=== PATIENT | male | born 1955 | race Two or more races ===

== ENCOUNTER 2021-01-11 12:24 | Inpatient (IN) | payer OTHER, MEDICAID ==
[~2021-01-11] VITALS: Ht 172.7 cm; Wt 71.7 kg
[~2021-01-11 12:24] MED LIST: ASPI81CH43 PO; CITA20TA3 PO; FAMO-12 PO; FURO40TA4 PO; GABA300C10 PO; METH-532 PO; METO-6 PO; MULT-228 PO; OMEGCAP2 PO; POTA1TAB61 PO; TRAM50TA2 PO
[2021-01-11 14:59] LABS: Basophils # (auto) 0 10 ^3/uL (0-0.2); Basophils % (auto) 0.3 % (0.0-2.0); Eosinophils # (auto) 0 10 ^3/uL (0-0.8); Hematocrit 45.8 % (41.0-53.0); Hemoglobin 15.5 g/dL (13.5-17.5); Lymphocytes # (auto) 0.6 10 ^3/uL (0.4-5.4); Lymphocytes % (auto) 5.7 % (10.0-50.0); Mean Corpuscular Hemoglobin 31.3 pg (28.0-32.0); Mean Corpuscular Hgb Conc. 33.9 g/dL (32.0-36.0); Mean Corpuscular Volume 92.5 fL (80.0-100.0); Monocytes # (auto) 0.4 10 ^3/uL (0-1.3); Monocytes % (auto) 3.7 % (0.0-12.0); Neutrophils % (auto) 90.3 % (37.0-80.0); Red Blood Cells 4.95 10^6/uL (4.5-5.90)
[2021-01-11 15:16] LABS: Albumin 3.1 g/dL (3.4-5.0); Anion Gap 7 (5-15); Carbon Dioxide 26 mmol/L (21-32); Chloride 102 mmol/L (98-107); Glucose 136 mg/dL (74-106); Potassium 3.4 mmol/L (3.5-5.1); Sodium 135 mmol/L (136-145)
[2021-01-11 15:25] LABS: Alanine Aminotransferase 32 U/L (16-61); Alkaline Phosphatase 97 U/L (45-117); Aspartate Aminotransferase 36 U/L (15-37); Bilirubin, Total 0.2 mg/dL (0.2-1.0); GFR African American 109 mL/min; GFR Non-African American 90 mL/min; Total Protein 7.7 g/dL (6.4-8.2)
[2021-01-11 15:48] LABS: BUN/Creatinine Ratio 14.4; Blood Urea Nitrogen 13 mg/dL (7-18)
[2021-01-11] MEDS ORDERED: NITROGLYCERIN 0.4 MG SL TAB SL PRN (16:30)
[2021-01-11] MEDS ORDERED: MORPHINE SULFATE INJECTION 2 MG/ML SYRG IV PRN (16:30)
[2021-01-11] MEDS ORDERED: POTASSIUM EFFERVESENT TAB 25 MEQ PO ONE (16:45)
[2021-01-11] MEDS: DexAMETHasone SOD PHOS 10MG/1ML VIAL INJ IV SCH (17:13)
[2021-01-11] MEDS: ALBUTEROL SULF HFA 90MCG INH 200DOSE IN SCH (18:20)
[2021-01-11] MEDS: FISH OIL 1,000 MG CAPSULE PO SCH (22:00)
[2021-01-11] MEDS ORDERED: DEXTROSE (50%) 50ML SYRG IV PRN (22:00)
[2021-01-11] MEDS: METHOCARBAMOL 500 MG TAB PO SCH (22:10)
[2021-01-11] MEDS: METOPROLOL SUCCINATE XL 50 MG TAB PO SCH (22:11)
[2021-01-11] MEDS: traMADol HCL 50 MG TAB PO SCH (22:11)
[2021-01-11] MEDS: ACCU-CHEK COMFORT CURVE STRIP VI SCH (22:11)
[2021-01-11] MEDS: InsuLIN REG 1unit/0.01ml Soln (100units/ml) SC SCH (22:12)
[2021-01-12] MEDS: ACCU-CHEK COMFORT CURVE STRIP VI SCH ×4 (06:16→21:51)
[2021-01-12] MEDS: METHOCARBAMOL 500 MG TAB PO SCH ×3 (06:19→21:39)
[2021-01-12] MEDS: InsuLIN REG 1unit/0.01ml Soln (100units/ml) SC SCH ×4 (06:31→21:27)
[2021-01-12] MEDS: ALBUTEROL SULF HFA 90MCG INH 200DOSE IN SCH ×3 (06:45→17:30)
[2021-01-12] MEDS ORDERED: cefTRIAXone 1GM/50ML D5W 50 ML IV SCH (09:00)
[2021-01-12] MEDS: ASCORBIC ACID 500 MG TAB PO SCH (09:45)
[2021-01-12] MEDS: FAMOTIDINE 20 MG TAB PO SCH (09:46)
[2021-01-12] MEDS: ASPirin 81 mg TAB PO SCH (09:46)
[2021-01-12] MEDS: CITALOPRAM HYDROBR 20 MG TAB PO SCH (09:47)
[2021-01-12] MEDS: METOPROLOL SUCCINATE XL 50 MG TAB PO SCH ×2 (09:49→21:38)
[2021-01-12] MEDS: ZINC SULFATE 220mg CAP or TAB PO SCH (09:50)
[2021-01-12] MEDS: CHOLECALCIFEROL (VITD3) 2,000 UNIT CAP/TAB PO SCH (09:50)
[2021-01-12] MEDS: ENOXAPARIN SOD 40 MG/0.4 ML SYRINGE SC SCH (09:51)
[2021-01-12] MEDS: DexAMETHasone SOD PHOS 10MG/1ML VIAL INJ IV SCH (09:53)
[2021-01-12] MEDS ORDERED: AZITHROMYCIN 500MG/ 250ML 250 ML IV SCH (10:00)
[2021-01-12] MEDS: FISH OIL 1,000 MG CAPSULE PO SCH ×2 (10:00→21:51)
[2021-01-12] MEDS: traMADol HCL 50 MG TAB PO SCH ×2 (10:23→21:39)
[2021-01-12] MEDS ORDERED: REMDESIVIR PER PHARMACY 0 ML IV SCH (13:00)
[2021-01-12] MEDS ORDERED: REMDESIVIR 200 MG in NS 210ml LOADING DOSE ADULT IV ONE (15:00)
[2021-01-12 20:00] VITALS: BP 134/72
[2021-01-12 22:48] VITALS: BP 129/75
[2021-01-13 05:08] VITALS: BP 131/75
[2021-01-13] MEDS: ACCU-CHEK COMFORT CURVE STRIP VI SCH ×4 (06:32→22:20)
[2021-01-13] MEDS: InsuLIN REG 1unit/0.01ml Soln (100units/ml) SC SCH ×4 (06:32→22:00)
[2021-01-13] MEDS: ALBUTEROL SULF HFA 90MCG INH 200DOSE IN SCH ×3 (06:41→20:58)
[2021-01-13] MEDS: METHOCARBAMOL 500 MG TAB PO SCH ×3 (06:47→22:18)
[2021-01-13 07:04] LABS: Basophils # (auto) 0 10 ^3/uL (0-0.2); Basophils % (auto) 0.1 % (0.0-2.0); Eosinophils # (auto) 0 10 ^3/uL (0-0.8); Hematocrit 42.8 % (41.0-53.0); Hemoglobin 14.3 g/dL (13.5-17.5); Lymphocytes % (auto) 7.4 % (10.0-50.0); Mean Corpuscular Hemoglobin 30.6 pg (28.0-32.0); Mean Corpuscular Hgb Conc. 33.4 g/dL (32.0-36.0); Mean Corpuscular Volume 91.7 fL (80.0-100.0); Monocytes # (auto) 0.9 10 ^3/uL (0-1.3); Monocytes % (auto) 6.8 % (0.0-12.0); Neutrophils # (auto) 11.7 10 ^3/uL (1.6-8.6); Neutrophils % (auto) 85.7 % (37.0-80.0); Nucleated Red Blood Cells % 0.1 %; Red Blood Cells 4.67 10^6/uL (4.5-5.90); Red Cell Distribution Width 12.6 % (11.8-14.3); White Blood Cell 13.7 10^3/uL (4.4-10.8)
[2021-01-13 07:30] LABS: Potassium 4.3 mmol/L (3.5-5.1)
[2021-01-13 07:37] LABS: Albumin 2.9 g/dL (3.4-5.0); BUN/Creatinine Ratio 29.7; Calcium 9.6 mg/dL (8.5-10.1); Magnesium 2.3 mg/dL (1.6-2.6)
[2021-01-13 07:39] LABS: Bilirubin, Total 0.3 mg/dL (0.2-1.0); Total Protein 7.7 g/dL (6.4-8.2)
[2021-01-13 08:00] VITALS: BP 129/73
[2021-01-13 09:00] VITALS: BP 129/73
[2021-01-13] MEDS: FISH OIL 1,000 MG CAPSULE PO SCH ×2 (10:00→22:00)
[2021-01-13] MEDS: ASPirin 81 mg TAB PO SCH (10:12)
[2021-01-13] MEDS: DexAMETHasone SOD PHOS 10MG/1ML VIAL INJ IV SCH (10:12)
[2021-01-13] MEDS: FAMOTIDINE 20 MG TAB PO SCH (10:13)
[2021-01-13] MEDS: CITALOPRAM HYDROBR 20 MG TAB PO SCH (10:13)
[2021-01-13] MEDS: ZINC SULFATE 220mg CAP or TAB PO SCH (10:13)
[2021-01-13] MEDS: CHOLECALCIFEROL (VITD3) 2,000 UNIT CAP/TAB PO SCH (10:20)
[2021-01-13] MEDS: traMADol HCL 50 MG TAB PO SCH ×2 (10:20→22:19)
[2021-01-13] MEDS: METOPROLOL SUCCINATE XL 50 MG TAB PO SCH ×2 (10:20→22:21)
[2021-01-13] MEDS: ASCORBIC ACID 500 MG TAB PO SCH (10:20)
[2021-01-13] MEDS: ENOXAPARIN SOD 40 MG/0.4 ML SYRINGE SC SCH (10:21)
[2021-01-13 13:00] VITALS: BP 135/83
[2021-01-13] MEDS: REMDESIVIR 100mg 100 MG in SODIUM CHL 0.9% 230 ML IV SCH (15:14)
[2021-01-13 17:00] VITALS: BP 122/85
[2021-01-13 19:24] VITALS: BP 122/85
[2021-01-14 06:00] VITALS: BP 131/88
[2021-01-14] MEDS: InsuLIN REG 1unit/0.01ml Soln (100units/ml) SC SCH ×4 (06:37→21:57)
[2021-01-14] MEDS: ACCU-CHEK COMFORT CURVE STRIP VI SCH ×4 (06:38→22:07)
[2021-01-14] MEDS: METHOCARBAMOL 500 MG TAB PO SCH ×3 (06:39→22:07)
[2021-01-14 07:56] LABS: Alanine Aminotransferase 47 U/L (16-61); Albumin 2.5 g/dL (3.4-5.0); Anion Gap 7 (5-15); Aspartate Aminotransferase 35 U/L (15-37); BUN/Creatinine Ratio 24.6; Blood Urea Nitrogen 15 mg/dL (7-18); Calcium 8.9 mg/dL (8.5-10.1); Carbon Dioxide 25 mmol/L (21-32); Chloride 100 mmol/L (98-107); GFR African American 171 mL/min; GFR Non-African American 141 mL/min; Glucose 83 mg/dL (74-106); Potassium 4.4 mmol/L (3.5-5.1); Sodium 132 mmol/L (136-145)
[2021-01-14 07:58] LABS: Alkaline Phosphatase 90 U/L (45-117); Bilirubin, Total 0.2 mg/dL (0.2-1.0); Total Protein 6.9 g/dL (6.4-8.2)
[2021-01-14 08:00] VITALS: BP 128/73
[2021-01-14] MEDS: ALBUTEROL SULF HFA 90MCG INH 200DOSE IN SCH ×3 (08:09→19:41)
[2021-01-14 09:00] VITALS: BP 128/73
[2021-01-14] MEDS: FISH OIL 1,000 MG CAPSULE PO SCH ×2 (10:00→21:12)
[2021-01-14] MEDS: ASPirin 81 mg TAB PO SCH (10:25)
[2021-01-14] MEDS: DexAMETHasone SOD PHOS 10MG/1ML VIAL INJ IV SCH (10:25)
[2021-01-14] MEDS: CITALOPRAM HYDROBR 20 MG TAB PO SCH (10:26)
[2021-01-14] MEDS: METOPROLOL SUCCINATE XL 50 MG TAB PO SCH ×2 (10:26→22:07)
[2021-01-14] MEDS: ZINC SULFATE 220mg CAP or TAB PO SCH (10:26)
[2021-01-14] MEDS: FAMOTIDINE 20 MG TAB PO SCH (10:26)
[2021-01-14] MEDS: traMADol HCL 50 MG TAB PO SCH ×2 (10:27→22:06)
[2021-01-14] MEDS: ENOXAPARIN SOD 40 MG/0.4 ML SYRINGE SC SCH (10:27)
[2021-01-14] MEDS: ASCORBIC ACID 500 MG TAB PO SCH (10:27)
[2021-01-14] MEDS: CHOLECALCIFEROL (VITD3) 2,000 UNIT CAP/TAB PO SCH (10:27)
[2021-01-14 13:00] VITALS: BP 147/75
[2021-01-14] MEDS: REMDESIVIR 100mg 100 MG in SODIUM CHL 0.9% 230 ML IV SCH (15:05)
[2021-01-14 17:00] VITALS: BP 130/80
[2021-01-14 22:08] VITALS: BP 113/71
[2021-01-15 05:38] LABS: Basophils # (auto) 0 10 ^3/uL (0-0.2); Basophils % (auto) 0.2 % (0.0-2.0); Eosinophils # (auto) 0 10 ^3/uL (0-0.8); Eosinophils % (auto) 0.1 % (0.0-7.0); Hematocrit 40.3 % (41.0-53.0); Hemoglobin 13.6 g/dL (13.5-17.5); Lymphocytes # (auto) 1.1 10 ^3/uL (0.4-5.4); Lymphocytes % (auto) 8.4 % (10.0-50.0); Mean Corpuscular Hemoglobin 30.9 pg (28.0-32.0); Mean Corpuscular Hgb Conc. 33.8 g/dL (32.0-36.0); Mean Corpuscular Volume 91.5 fL (80.0-100.0); Monocytes # (auto) 0.8 10 ^3/uL (0-1.3); Monocytes % (auto) 6.5 % (0.0-12.0); Neutrophils # (auto) 10.9 10 ^3/uL (1.6-8.6); Neutrophils % (auto) 84.8 % (37.0-80.0); Red Cell Distribution Width 12.7 % (11.8-14.3); White Blood Cell 12.9 10^3/uL (4.4-10.8)
[2021-01-15 05:54] LABS: Potassium 4.3 mmol/L (3.5-5.1)
[2021-01-15 05:58] VITALS: BP 121/82
[2021-01-15 06:14] LABS: Albumin 2.5 g/dL (3.4-5.0); BUN/Creatinine Ratio 21.1; Bilirubin, Total 0.3 mg/dL (0.2-1.0); Calcium 8.9 mg/dL (8.5-10.1); Magnesium 2.3 mg/dL (1.6-2.6); Total Protein 6.5 g/dL (6.4-8.2)
[2021-01-15] MEDS: METHOCARBAMOL 500 MG TAB PO SCH ×2 (06:29→14:44)
[2021-01-15] MEDS: ACCU-CHEK COMFORT CURVE STRIP VI SCH ×3 (06:30→17:00)
[2021-01-15] MEDS: InsuLIN REG 1unit/0.01ml Soln (100units/ml) SC SCH ×3 (06:30→17:00)
[2021-01-15] MEDS: ALBUTEROL SULF HFA 90MCG INH 200DOSE IN SCH ×2 (07:04→13:50)
[2021-01-15 09:00] VITALS: BP 127/75
[2021-01-15] MEDS: ASCORBIC ACID 500 MG TAB PO SCH (09:02)
[2021-01-15] MEDS: ASPirin 81 mg TAB PO SCH (09:02)
[2021-01-15] MEDS: DexAMETHasone SOD PHOS 10MG/1ML VIAL INJ IV SCH (09:02)
[2021-01-15] MEDS: ENOXAPARIN SOD 40 MG/0.4 ML SYRINGE SC SCH (09:03)
[2021-01-15] MEDS: CITALOPRAM HYDROBR 20 MG TAB PO SCH (09:03)
[2021-01-15] MEDS: FAMOTIDINE 20 MG TAB PO SCH (09:03)
[2021-01-15] MEDS: ZINC SULFATE 220mg CAP or TAB PO SCH (09:04)
[2021-01-15] MEDS: METOPROLOL SUCCINATE XL 50 MG TAB PO SCH (10:00)
[2021-01-15] MEDS: FISH OIL 1,000 MG CAPSULE PO SCH (10:00)
[2021-01-15] MEDS: traMADol HCL 50 MG TAB PO SCH (10:02)
[2021-01-15] MEDS: CHOLECALCIFEROL (VITD3) 2,000 UNIT CAP/TAB PO SCH (10:02)
[2021-01-15 13:00] VITALS: BP 122/76
[2021-01-15] MEDS: REMDESIVIR 100mg 100 MG in SODIUM CHL 0.9% 230 ML IV SCH (15:10)
== END 2021-01-15 17:05 | disposition home health service (06) | DRG 177 ==
LOC: ER 12:24 → EDBD 12:24 → TELE 16:25 → TELE-EAST 01-12 18:14
PROVIDERS: ADMIT Internal Medicine; ATTEND Internal Medicine
PROC: XW033E5 Introduction of Remdesivir Anti-infective into Peripheral Vein, Percutaneous Approach, New Technology Group 5 (ICD-10-PCS; principal; 2021-01-12)
DX: U07.1 COVID-19 (principal); J96.01 Acute respiratory failure with hypoxia; J12.82 Pneumonia due to coronavirus disease 2019; J98.11 Atelectasis; F32.9 Major depressive disorder, single episode, unspecified; F41.9 Anxiety disorder, unspecified; J45.909 Unspecified asthma, uncomplicated; I10 Essential (primary) hypertension; E11.9 Type 2 diabetes mellitus without complications; E78.5 Hyperlipidemia, unspecified; Z79.82 Long term (current) use of aspirin; Z79.899 Other long term (current) drug therapy; Z83.3 Family history of diabetes mellitus; Z88.8 Allergy status to other drugs, medicaments and biological substances
CPT/HCPCS: 36415; 71045; 80053; 82728; 82962; 83735; 83880; 84484; 85025; 85379; 86141; 87081; 87426; 93005; 94640; 96374; 99291; G0378; J0696; J1100; J1815

== ENCOUNTER 2024-12-02 19:31 | Inpatient (IN) | payer BC, MEDICAID, OTHER ==
[~2024-12-02] VITALS: Ht 175.3 cm; Wt 70.2 kg
[~2024-12-02 19:31] MED LIST changes: +GABA-1250 PO; -GABA300C10 PO; +POTA-215 PO; -POTA1TAB61 PO
[2024-12-02] MEDS: MORPHINE SULFATE 4 MG/ML SYR/VIAL IV ONE (19:45)
[2024-12-02] MEDS: ONDANSETRON HCL 4 MG/2 ML VIAL IV ONE (19:45)
[2024-12-02] MEDS: SODIUM CHLORIDE 0.9% 1,000 ML IV ONE (19:45)
--- NOTE | 2024-12-02 19:54 | ED.PDOC ---
HPI (NEURO) HPI Comments 69y M who presents to the ED via EMS for chief complaint of headache. Per EMS, pt lives with spouse and called after pt has been having frequent falls over the past few days since pt had fall 3 days ago. Pt states 3 days ago, pt had slip and fall onto back of head and states ever since, he has been unsteady on his feet with associated occipital headache. EMS states pt was alert and oriented upon arrival and notes pt was able to ambulate to [place]. Pt has continued to have symptoms since and upon arrival to the ED, pt states he has also been having nausea, vomiting, diarrhea, upper abdominal pain, and chest pain. Pt states he has been having "frequent falls for the past 1 year and chest pain for the past 10 years." Pt denies any current use of blood thinner at this time. Time Seen by MD: 19:51 Primary Care Provider: KASANDRA Gerard Notes: Medications, Allergies Information Source: Patient, Emergency Med Personnel Mode of Arrival: EMS Past Medical History PAST MEDICAL HISTORY: Arthritis, Depression, DM, High Lipids, HTN Surgical History: Tonsillectomy Family History Family History: Unobtainable Social History Smoker: Non-Smoker Alcohol: Occasionally Drugs: Denies Drug Use Lives In: Home Constitutional: denies: chills, diaphoresis, fatigue, fever, malaise, sweats, weakness, others EENTM: denies: blurred vision, double vision, ear bleeding, ear discharge, ear drainage, ear pain, ear ringing, eye pain, eye redness, hearing loss, mouth pain, mouth swelling, nasal discharge, nose bleeding, nose congestion, nose pain, photophobia, tearing, throat pain, throat swelling, voice changes, others Respiratory: denies: cough, hemoptysis, orthopnea, SOB at rest, shortness of breath, SOB with excertion, stridor, wheezing, others Cardiovascular: reports: chest pain; denies: dizzy spells, diaphoresis, Dyspnea on exertion, edema, irregular heart beat, left arm pain, lightheadedness, palpitations, PND, syncope, others Gastrointestinal: reports: abdominal pain, nausea, vomiting; denies: abdomen distended, blood streaked bowels, constipated, diarrhea, dysphagia, difficulty swallowing, hematemesis, melena, poor appetite, poor fluid intake, rectal bleeding, rectal pain, others Genitourinary: denies: burning, dysuria, flank pain, frequency, hematuria, incontinence, penile discharge, penile sore, pain, testicle pain, testicle swelling, urgency, others Neurological: reports: headache Musculoskeletal: denies: back pain, gout, joint pain, joint swelling, muscle pain, muscle stiffness, neck pain, others Integumetry: denies: bruises, change in color, change in hair/nails, dryness, laceration, lesions, lumps, rash, wounds, others Allergic/Immunocompromised: denies: Difficulty Healing, Frequent Infections, Hives, Itching, others Hematologic/Lymphatic: denies: anemia, blood clots, easy bleeding, easy bruising, swollen glands, others Endocrine: denies: excessive hunger, excessive sweating, excessive thirst, excessive urination, flushing, intolerance to cold, intolerance to heat, unexplained weight gain, unexplained weight loss, others Psychiatric: denies: anxiety, bipolar disorder, depression, hopeless, panic disorder, schizophrenia, sleepless, suicidal, others All Other Systems: Reviewed and Negative Physical Exam General Appearance: No Apparent Distress HEENT: Other (Pupils and face symmetric. Moist mucous membranes. Occipital soft tissue tenderness to palpation. No edema, crepitus, bruising or step-off.) Neck: Full Range of Motion, Non-Tender, Normal Inspection, Supple Respiratory: Lungs Clear, No Accessory Muscle Use, No Respiratory Distress, Normal Breath Sounds Cardiovascular: No Edema, No JVD, Regular Rate/Rhythm Breast Exam: Deferred Gastrointestinal: Epigastric, LUQ, Soft, Tenderness Genitalia: Deferred Pelvic: Deferred Rectal: Deferred Extremities: Normal inspection, Normal range of motion, Non-tender, No pedal edema Neurologic: Alert (Oriented x4), Normal Affect, Normal Mood, Other (Ambulatory) Cerebellar Function: NOT DONE Reflexes: NOT DONE Skin: Dry, Normal Color, Warm Lymphatic: NOT DONE EKG EKG : Comments Sinus rhythm, rate 62, prolonged VT and QRS intervals, QTC 451, left axis deviation, right bundle-branch block and left anterior fascicular block, left ve ntricular hypertrophy, nonspecific T change. Was a procedure done? Was a procedure done?: No Differential Diagnosis (SZ) Seizure: CVA/TIA CVA: Drug Overdose, Electrolyte Imbalance, Encephalopathy, Hypoglycemia, SAH General Weakness: Anemia, Dehydration, Hypoglycemia, Vertigo: central, Vertigo: peripheral Headache: Migraine, Closed Head Injury, Epidural Hemorrhage, Intracerebral Hemorrhage, Subdural Hemorrhage, Other (Concussion, skull fracture, enteritis, gastritis, pancreatitis, colitis, UTI, among others) X-Ray, Labs, Meds, VS Vital Signs Date Time Temp Pulse Resp B/P (MAP) Pulse Ox O2 Delivery O2 Flow Rate FiO2 12/02/24 19:54 98.0 67 16 134/84 97 98.0 12/02/24 19:33 62 Lab Test 12/02/24 21:00 12/02/24 20:11 Range/Units Troponin I High Sensitivity Pending 52 </=54 ng/L White Blood Count 8.1 4.4-10.8 10^3/uL Red Blood Count 4.31 L 4.5-5.90 10^6/uL Hemoglobin 14.1 13.5-17.5 g/dL Hematocrit 40.6 L 41.0-53.0 % Mean Corpuscular Volume 94.4 80.0-100.0 fL Mean Corpuscular Hemoglobin 32.8 H 28.0-32.0 pg Mean Corpuscular Hemoglobin Concent 34.8 32.0-36.0 g/dL Red Cell Distribution Width 12.4 11.8-14.3 % Platelet Count 301 140-450 10^3/uL Mean Platelet Volume 5.8 L 6.9-10.8 fL Neutrophils (%) (Auto) 64.7 37.0-80.0 % Lymphocytes (%) (Auto) 22.9 10.0-50.0 % Monocytes (%) (Auto) 10.0 0.0-12.0 % Eosinophils (%) (Auto) 2.0 0.0-7.0 % Basophils (%) (Auto) 0.4 0.0-2.0 % Neutrophils # (Auto) 5.2 1.6-8.6 10 ^3/uL Lymphocytes # (Auto) 1.9 0.4-5.4 10 ^3/uL Monocytes # (Auto) 0.8 0-1.3 10 ^3/uL Eosinophils # (Auto) 0.2 0-0.8 10 ^3/uL Basophils # (Auto) 0 0-0.2 10 ^3/uL Nucleated Red Blood Cells 0.1 % Sodium Level 133 L 136-145 mmol/L Potassium Level 3.8 3.5-5.1 mmol/L Chloride Level 99 98-107 mmol/L Carbon Dioxide Level 25 20-31 mmol/L Anion Gap 9 5-15 Blood Urea Nitrogen 6 L 9-23 mg/dL Creatinine 0.88 0.700-1.30 mg/dL Glomerular Filtration Rate Calc 93 >90 mL/min BUN/Creatinine Ratio 6.8 L 10.0-20.0 Serum Glucose 104 74-106 mg/dL Calcium Level 9.6 8.7-10.4 mg/dL Total Bilirubin 0.6 0.2-1.0 mg/dL Aspartate Amino Transferase (AST) 46 H 13-40 U/L Alanine Aminotransferase (ALT) 46 H 7-40 U/L Alkaline Phosphatase 94 46-116 U/L Ammonia Pending Total Protein 7.2 5.7-8.2 g/dL Albumin 4.8 3.2-4.8 g/dL Lipase 114 H 12-53 U/L Plasma/Serum Blood Alcohol 275.5 H <10 mg/dL [place] [address] Ph: [phone] DIAGNOSTIC IMAGING Diagnostic Imaging Report : [id number] Signed PATIENT: MONIKA MAX ACCT: [id number] UNIT: [id number] : 1955 LOC: ER ROOM / BED: / AGE / SEX: 69 / M ADM STATUS: REG ER SERVICE 38 ORDERING PHYSICIAN: SHOAIB CHINCHILLA MD PROCEDURE(s): HWOCT - HEAD WITHOUT CONTRAST REASON: head injury ORDER NUMBER(s): [id number], ACCESSION NUMBER(s): [id number] EXAM: CT HEAD WITHOUT CONTRAST INDICATION: head injury TECHNIQUE: CT of the head without intravenous contrast. Radiation Dose Information: CT Dose: CTDI volume is 54.73 mGy. Dose-length product is 969.24 mGy*cm The dose indicators for CT are the volume Computed Tomography (CT) Dose Index (C TDIvol) and the Dose Length Product (DLP), and are measured in units of mGy and mGy-cm, respectively. These indicators are not patient dose, but values generated from the CT scanner acquisition factors. The report includes radiation exposure data for exposures received during this examination. COMPARISON: None FINDINGS: There is no evidence of acute intracranial hemorrhage, extra-axial collection, mass effect, midline shift, herniation or hydrocephalus. The ventricles, sulci and cisterns are age appropriate. The lyons-white differentiation is intact. Patchy periventricular and subcortical white matter hypoattenuation is non specific but may be related to small vessel ischemic disease. The visualized paranasal sinuses and mastoid air cells are clear. The surrounding soft tissues and osseous structures are unremarkable. IMPRESSION: 1. No acute intracranial abnormality. ATED BY: ROMEO SÁNCHEZ Jr., DO DICTATED DATE/TIME: 12/02/242043 SIGNED BY: ROMEO SÁNCHEZ Jr., DO SIGNED DATE/TIME: 12/02/242043 CC: [place] [id number] Ph: [phone] DIAGNOSTIC IMAGING Diagnostic Imaging Report : [id number] Signed PATIENT: MONIKA MAX ACCT: [id number] UNIT: [id number] : 1955 LOC: ER ROOM / BED: / AGE / SEX: 69 / M ADM STATUS: REG ER SERVICE 38 ORDERING PHYSICIAN: SHOAIB CHINCHILLA MD PROCEDURE(s): CXRP - CHEST PORTABLE REASON: cp ORDER NUMBER(s): [id number], ACCESSION NUMBER(s): [id number] CHEST RADIOGRAPH Indication: cp Technique: Single frontal view of the chest was obtained Comparison: CXR1 on DOS: 01/15/21, CHEST XRAY 1 VIEW on DOS: 01/15/21, CHEST PORTABLE on DOS: 01/11/21 FINDINGS: Lines and Tubes: None Lungs: No focal consolidation. Pleura: No effusion. No pneumothorax. Cardiomediastinal contours: Unremarkable Bones: No acute osseous abnormality. IMPRESSION: 1. No acute cardiopulmonary disease. ATED BY: ROMEO SÁNCHEZ Jr., DO DICTATED DATE/TIME: 12/02/242044 SIGNED BY: ROMEO SÁNCHEZ Jr., DO SIGNED DATE/TIME: 12/02/242044 CC: [facility] [id number] [place] [address] Ph: [phone] DIAGNOSTIC IMAGING Diagnostic Imaging Report : [id number] Signed PATIENT: MONIKA MAX ACCT: [id number] UNIT: [id number] : 1955 LOC: ER ROOM / BED: / AGE / SEX: 69 / M ADM STATUS: REG ER SERVICE 38 ORDERING PHYSICIAN: SHOAIB CHINCHILLA MD PROCEDURE(s): ABPL - CT AB PEL WO CON-NO ORAL OR IV REASON: upper abd pain, n/v/d ORDER NUMBER(s): [id number], ACCESSION NUMBER(s): [id number] Exam: CT CT AB PEL WO CON-NO ORAL OR IV History: upper abd pain, n/v/d Comparison Study: None TECHNIQUE: Multidetector CT of the abdomen and pelvis was performed from lung bases to pubic symphysis. Imaging was performed without IV contrast. Axial, coronal, and sagittal multiplanar reformats were obtained from the axial data set by the technologist. RADIATION DOSE: DLP 587.14 mGy.cm; CTDI vol 10.22 mGy. Findings: Lungs: The lung bases are clear. Heart: No cardiomegaly or pericardial effusion. Liver: Unremarkable. Gallbladder: Unremarkable. Spleen: Unremarkable Pancreas: Unremarkable Adrenals: Unremarkable Kidneys: Right renal cyst. GI tract: Unremarkable : Unremarkable. Vasculature: Moderate aortoiliac atherosclerosis. Lymphadenopathy: Absent Peritoneum: No ascites Musculoskeletal: Moderate multilevel degenerative changes of the thoracolumbar spine. Grade 1 anterolisthesis of L5 on S1. L5 pars defects. Soft tissues: Small fat containing periumbilical hernia. Unremarkable Impression: 1. No acute abdominopelvic abnormalities. ATED BY: DAIJA MONZON DO DICTATED DATE/TIME: 12/02/242100 SIGNED BY: DAIJA MONZON DO SIGNED DATE/TIME: 12/02/242100 CC: X-Ray, Labs, Meds, VS Comment 69-year-old male with a history of hypertension, diabetes, dyslipidemia and arthritis brought in by EMS for evaluation of recent frequent falls, complaining of an occipital headache after a fall 3 days ago with a head injury, associated with upper abdominal pain, nausea, vomiting and diarrhea Vitals remarkable for heart rate 62 Exam remarkable for epigastric and left upper quadrant tenderness to palpation, occipital scalp tenderness to palpation Rhythm strip independently interpreted by me: Sinus rhythm, rate 62, no ectopy. CT head, chest x-ray and CT abdomen and pelvis unremarkable for any abnormality of acute significance CBC unremarkable, CMP remarkable for sodium 133, AST 46, ALT 46, troponin negative, lipase elevated at 114 , alcohol 275.5, ammonia pending The following was ordered for the patient in the ED: 1 L 0.9 normal saline IV bolus, morphine 4 mg IV, Zofran 4 mg IV, Protonix 40 mg IV On re-evaluation at 9:27 p.m., patient is alert, oriented, states symptoms have improved. Vitals are stable. Plan is to admit the patient for pain and emesis control, GI and possibly neurology evaluation. Case discussed with TERRENCE Maxwell, who will evaluate the patient in the ED. Time of 1ST Reevaluation: 21:27 Reevaluation 1ST: Improved Patient Education/Counseling: Diagnosis, Treatment Family Education/Counseling: Diagnosis, Treatment Departure 1 Departure Time of Disposition: 21:27 Impression: Primary Impression: Frequent falls Additional Impressions: Head injury Qualified Codes: S09.90XA - Unspecified injury of head, initial encounter Pancreatitis Qualified Codes: K85.90 - Acute pancreatitis without necrosis or infection, unspecified Hyponatremia Chest pain with high risk for cardiac etiology Alcohol intoxication Qualified Codes: F10.929 - Alcohol use, unspecified with intoxication, unspecified Disposition: 30 STILL A PATIENT Condition: Guarded Critical Care Note Critical Care Time?: No Stability Stability form required: No Heart Score Heart Score: Heart Score Response (Comments) Value History Moderate Suspicious 1 EKG Repolarization Disturb 1 Age >65 2 Risk Factors >3 or Hx ASHD 2 Troponin Normal limit 0 Total 6 I personally scribed for SHOAIB CHINCHILLA MD ([facility]) on 12/02/24 at 19:54. Electronically submitted by Kate Boogie ([facility]). I personally scribed for SHOAIB CHINCHILLA MD ([facility]) on 8/7/25 at 21:08. Electronically submitted by Kate Boogie ([facility]). I personally scribed for SHOAIB CHINCHILLA MD ([facility]) on 12/02/24 at 21:13. Electronically submitted by Kate Boogie ([facility]). SHOAIB CHINCHILLA MD Dec 02, 2024 19:54
[2024-12-02 20:40] LABS: Hematocrit 40.6 % (41.0-53.0); Hemoglobin 14.1 g/dL (13.5-17.5); Mean Corpuscular Hemoglobin 32.8 pg (28.0-32.0); Mean Corpuscular Volume 94.4 fL (80.0-100.0); Nucleated Red Blood Cells % 0.1 %
--- NOTE | 2024-12-02 20:47 | DVH ---
CHEST RADIOGRAPH Indication: cp Technique: Single frontal view of the chest was obtained Comparison: CXR1 on DOS: 01/15/21, CHEST XRAY 1 VIEW on DOS: 01/15/21, CHEST PORTABLE on DOS: 01/11/21 FINDINGS: Lines and Tubes: None Lungs: No focal consolidation. Pleura: No effusion. No pneumothorax. Cardiomediastinal contours: Unremarkable Bones: No acute osseous abnormality. IMPRESSION: 1. No acute cardiopulmonary disease.
--- NOTE | 2024-12-02 20:47 | DVH ---
EXAM: CT HEAD WITHOUT CONTRAST INDICATION: head injury TECHNIQUE: CT of the head without intravenous contrast. Radiation Dose Information: CT Dose: CTDI volume is 54.73 mGy. Dose-length product is 969.24 mGy*cm The dose indicators for CT are the volume Computed Tomography (CT) Dose Index (CTDIvol) and the Dose Length Product (DLP), and are measured in units of mGy and mGy-cm, respectively. These indicators are not patient dose, but values generated from the CT scanner acquisition factors. The report includes radiation exposure data for exposures received during this examination. COMPARISON: None FINDINGS: There is no evidence of acute intracranial hemorrhage, extra-axial collection, mass effect, midline s hift, herniation or hydrocephalus. The ventricles, sulci and cisterns are age appropriate. The lyons-white differentiation is intact. Patchy periventricular and subcortical white matter hypoattenuation is nonspecific but may be related to small vessel ischemic disease. The visualized paranasal sinuses and mastoid air cells are clear. The surrounding soft tissues and osseous structures are unremarkable. IMPRESSION: 1. No acute intracranial abnormality.
[2024-12-02 20:48] LABS: Albumin 4.8 g/dL (3.2-4.8); Alkaline Phosphatase 94 U/L (46-116); Anion Gap 9 (5-15); BUN/Creatinine Ratio 6.8 (10.0-20.0); Bilirubin, Total 0.6 mg/dL (0.2-1.0); Calcium 9.6 mg/dL (8.7-10.4); Carbon Dioxide 25 mmol/L (20-31); Chloride 99 mmol/L (98-107); Glucose 104 mg/dL (74-106); Potassium 3.8 mmol/L (3.5-5.1); Total Protein 7.2 g/dL (5.7-8.2)
--- NOTE | 2024-12-02 21:04 | DVH ---
Exam: CT CT AB PEL WO CON-NO ORAL OR IV History: upper abd pain, n/v/d Comparison Study: None TECHNIQUE: Multidetector CT of the abdomen and pelvis was performed from lung bases to pubic symphysi s. Imaging was performed without IV contrast. Axial, coronal, and sagittal multiplanar reformats were obtained from the axial data set by the technologist. RADIATION DOSE: DLP 587.14 mGy.cm; CTDI vol 10.22 mGy. Findings: Lungs: The lung bases are clear. Heart: No cardiomegaly or pericardial effusion. Liver: Unremarkable. Gallbladder: Unremarkable. Spleen: Unremarkable Pancreas: Unremarkable Adrenals: Unremarkable Kidneys: Right renal cyst. GI tract: Unremarkable : Unremarkable. Vasculature: Moderate aortoiliac atherosclerosis. Lymphadenopathy: Absent Peritoneum: No ascites Musculoskeletal: Moderate multilevel degenerative changes of the thoracolumbar spine. Grade 1 anterol isthesis of L5 on S1. L5 pars defects. Soft tissues: Small fat containing periumbilical hernia. Unremarkable Impression: 1. No acute abdominopelvic abnormalities.
[2024-12-02 21:05] LABS: Alanine Aminotransferase 46 U/L (7-40); Blood Urea Nitrogen 6 mg/dL (9-23); Lipase 114 U/L (12-53); Sodium 133 mmol/L (136-145)
--- NOTE | 2024-12-02 22:14 | ECG ---
[facility] Test Date: 2024-12-02 Test Time: 19:33:11 Pat Name: MONIKA MAX Department: [facility] ED Patient ID: [facility]-[id number] Room: 0223T Gender: M Rigger Third: LARA : 1955 Requested By: SHOAIB GREENBERG Order Number: [id number] Reading MD: Mayito Guerrero Measurements Intervals [place] Rate: 62 P: -34 WI: 203 QRS: -70 QRSD: 176 T: 13 QT: 444 QTc: 451 Interpretive Statements Sinus rhythm RBBB and LAFB Left ventricular hypertrophy Electronically Signed On 12-06-2024 18:12:11 PDT by Mayito Guerrero Please click the below link to view image of tracing.
[2024-12-03] MEDS ORDERED: ONDANSETRON HCL 4 MG/2 ML VIAL IV PRN (00:30)
[2024-12-03] MEDS ORDERED: NITROGLYCERIN 0.4 MG SL TAB SL PRN (00:30)
--- NOTE | 2024-12-03 01:26 | DVHHP2 ---
Admitting Diagnosis: Chest pain r/o ACS History of Present Illness History Source: Patient, Spouse/Significant Other Exam Limitations: No limitations HPI Mr. Blair Harper is a 69 yo male with known history of arthritis, depression, Hypertension, UT, Alcohol dependance who presents with a chief complaint of frequent falls x3 days, with an occipital headache, neck pain post fall x 3 days ago when patient states "i hit the back of my head". Patient reports he was referred to a cardiologists by his PCP for a cardiac workup. Patient reports on and off left sided chest pain radiating to his left arm. Patient denies, nausea, vomiting, dizziness, blurry vision, dyspnea, fevers, chills, tremors, SI. Patient admitted for further evaluation and treatment. Home Meds Reported Medications Methocarbamol (Robaxin-750) 750 Mg Tab, 1 TAB PO TID, #90 TAB 12/22/13 Multiple Vitamin (Multi-Day Vitamins) Vitamins Tab, 1 TAB PO DAILY, #30 TAB 12/22/13 Furosemide (Furosemide) 40 Mg Tab, 1.5 TAB PO DAILY, #30 TAB 5 Refills 12/22/13 Potassium Chloride (Klor-Con M10) 10 Meq Tab, 20 MEQ PO BID, TAB 12/22/13 Tramadol Hcl (Tramadol Hcl) 50 Mg Tab, 50 MG PO BID, TAB 07/14/13 Gabapentin (Gabapentin) 300 Mg Cap, 300 MG PO QHSP PRN, CAP 07/14/13 Aspirin (Asa) 81 Mg Ch, 81 MG PO DAILY 07/14/13 Citalopram Hydrobromide (CeleXA TABLET) 20 Mg Tb, 40 MG PO DAILY 07/14/13 [Fish Oil] (Fish Oil) No Conflict Check, 1000 MG PO BID 01/25/13 Metoprolol Succinate (Toprol Xl) 50 Mg Tab, 50 MG PO BID 01/25/13 Famotidine (Famotidine) 20 Mg Tab, 40 MG PO DAILY 01/25/13 Past Medical History Cardiac: HTN Psychiatric: Depression Others Arthritis Patient Family History: Alcoholism Alocohol: Heavy (2 quarts daily of beer ) Drugs: Marijuana Lives with: With family Domestic Violence: Neg Review of Systems Constitutional: Other (headache) Ears, Nose, & Throat: No symptom reported Eyes: No symptom reported Pulmonary/Respiratory: No symptom reported Cardiovascular: Chest Pain Gastrointestinal: No symptom reported Genitourinary: No symptom reported Musculoskeletal: No symptom reported Skin: No symptom reported Psychiatric: No symptom reported Endocrine: No symptom reported Hemotologic/Lymphatic: No symptom reported H&P Exam Vital Signs Vital Signs Date Time Temp Pulse Resp B/P (MAP) Pulse Ox O2 Delivery O2 Flow Rate FiO2 12/02/24 22:40 98.7 73 16 107/65 (79) 97 98.7 General Appeara: Well developed, Well nourished, Normal Appearance Head Exam: Normal inspection Neck Exam: Normal inspection, Non-tender, Normal alignment Eye Exam: bilateral eye Normal inspection, bilateral eye PERRL, bilateral eye EOMI Ear Exam: bilateral ear Auricle normal Nasal Exam: Normal inspection Mouth: Normal Inspection Pulmonary/Respiratory: Normal inspection, Normal breath sounds, Chest non- tender, Lungs clear Cardiovascular/Chest: Normal inspection, Regular rate, Normal Rhythm Peripheral Pulses: 2+ dorsalis pedis (R), 2+ dorsalis pedis (L), 2+ Radial (R), 2+ Radial (L) Abdominal Exam: Normal bowel sounds, Soft, No tenderness Rectal Exam: Deferred Back Exam: Normal inspection FORENSIC PATHOLOGIST Exam: Normal hearing, Normal speech, PERRL Motor/Sensory: Normal sensory function, Normal motor function Neuro/Mental St: Alert, Oriented Appearance: Appropriate appearance, Appropriate insight Eye contact/ Speech: Cooperative, Good eye contact, Normal speech Thoughts/Psych: Normal thought pattern Skin Exam: Normal inspection, Normal color, Warm/dry SEPSIS Sepsis Screen Date sepsis recognized/suspect: Dec 02, 2024 Time Sepsis recognized/suspect: 1934 Recent Procedure: No On Antibiotic Therapy: No Respiratory Rate >20: No Heart Rate >90: Yes Temp<36 C (96.8 F) or >38.3 C: No SBP <90 or MAP <65 mmHG: No New Acute Mental Status Change: No Is the patient on CPAP, BIPAP,: No Physician Orders Chest Portable (12/02/24 19:39) Urinalysis (12/02/24 19:39) Head Without Contrast (12/02/24 19:39) Ct Ab Pel Wo Con-No Oral Or Iv (12/02/24 19:39) Drug Screen (12/02/24 19:39) Admit (12/03/24 00:28) * Cardiology Consult (8/8/25 00:28) Echo 2d Mode Cardiac Dop (12/03/24 00:28) Troponin-I Hs (12/03/24 06:00) Troponin-I Hs (12/03/24 14:00) Troponin-I Hs (12/03/24 22:00) Nitroglycerin Sublingual (Ntrostat Subli (12/03/24 00:30) Morphine Sulfate Injection (12/03/24 00:30) Stat Ekg For Chest Pain (12/03/24) Notify Md Of Changes From Base (12/03/24:) Contact Finger Assembler For 24 Hours (12/03/24:) Emergency Dysrhythmia Protocol (12/03/24) Rhythm Strips Once Every Shift (12/03/24) Oxygen By Nasal Cannula (12/03/24) Full Code (12/03/24:) Cardiac Diet-2gna,Lofat,Lochol (12/03/24 Breakfast) Ondansetron Hcl (Zofran) (12/03/24 00:30) Aspirin Tablet (12/03/24 10:00) Atorvastatin (Lipitor) (12/03/24 22:00) Acetaminophen Tablet (Tylenol Tablet) (12/03/24 00:30) Pantoprazole (Protonix) (12/03/24 10:00) Hydrocodone-Acet 5/325mg Tab ([place] /32 (12/03/24 00:30) Folic Acid... (12/03/24 09:00) Lipid Panel (12/03/24 04:00) Lipase (12/03/24 04:00) Magnesium (12/03/24 04:00) Vital Signs Date Time Temp Pulse Resp B/P (MAP) Pulse Ox O2 Delivery O2 Flow Rate FiO2 12/02/24 22:40 98.7 73 16 107/65 (79) 97 98.7 12/02/24 19:54 98.0 67 16 134/84 97 98.0 12/02/24 19:33 62 Laboratory Tests Test 12/02/24 20:11 White Blood Count 8.1 10^3/uL (4.4-10.8) Labs/Xrays Labs Test 12/02/24 22:54 12/02/24 20:11 Range/Units Troponin I High Sensitivity 51 </=54 ng/L White Blood Count 8.1 4.4-10.8 10^3/uL Red Blood Count 4.31 L 4.5-5.90 10^6/uL Hemoglobin 14.1 13.5-17.5 g/dL Hematocrit 40.6 L 41.0-53.0 % Mean Corpuscular Volume 94.4 80.0-100.0 fL Mean Corpuscular Hemoglobin 32.8 H 28.0-32.0 pg Mean Corpuscular Hemoglobin Concent 34.8 32.0-36.0 g/dL Red Cell Distribution Width 12.4 11.8-14.3 % Platelet Count 301 140-450 10^3/uL Mean Platelet Volume 5.8 L 6.9-10.8 fL Neutrophils (%) (Auto) 64.7 37.0-80.0 % Lymphocytes (%) (Auto) 22.9 10.0-50.0 % Monocytes (%) (Auto) 10.0 0.0-12.0 % Eosinophils (%) (Auto) 2.0 0.0-7.0 % Basophils (%) (Auto) 0.4 0.0-2.0 % Neutrophils # (Auto) 5.2 1.6-8.6 10 ^3/uL Lymphocytes # (Auto) 1.9 0.4-5.4 10 ^3/uL Monocytes # (Auto) 0.8 0-1.3 10 ^3/uL Eosinophils # (Auto) 0.2 0-0.8 10 ^3/uL Basophils # (Auto) 0 0-0.2 10 ^3/uL Nucleated Red Blood Cells 0.1 % Sodium Level 133 L 136-145 mmol/L Potassium Level 3.8 3.5-5.1 mmol/L Chloride Level 99 98-107 mmol/L Carbon Dioxide Level 25 20-31 mmol/L Anion Gap 9 5-15 Blood Urea Nitrogen 6 L 9-23 mg/dL Creatinine 0.88 0.700-1.30 mg/dL Glomerular Filtration Rate Calc 93 >90 mL/min BUN/Creatinine Ratio 6.8 L 10.0-20.0 Serum Glucose 104 74-106 mg/dL Calcium Level 9.6 8.7-10.4 mg/dL Total Bilirubin 0.6 0.2-1.0 mg/dL Aspartate Amino Transferase (AST) 46 H 13-40 U/L Alanine Aminotransferase (ALT) 46 H 7-40 U/L Alkaline Phosphatase 94 46-116 U/L Ammonia 24 11-32 umol/L B-Type Natriuretic Peptide 45.87 0-100 pg/mL Total Protein 7.2 5.7-8.2 g/dL Albumin 4.8 3.2-4.8 g/dL Lipase 114 H 12-53 U/L Plasma/Serum Blood Alcohol 275.5 H <10 mg/dL Assessment/Plan Problem List: (1) Chest pain with high risk for cardiac etiology (2) Frequent falls (3) Alcohol intoxication Plan This is a 69 yo male with known history of arthritis, depression, hypertension, UT, alcohol intoxication who presents with frequent recent falls with headaches, chest pain. Patient found to have 1. Chest pain r/o ACS 2. Hypertension 3. Hx of Depression 4. Elevated Lipase level 5. Alcohol Intoxication Plan Admit Telemetry Cardiology consultation, 2D echo, serial troponin levels, ASA, Statin Monitor lipase level Banana bag IV hydration NS Analgesics as needed Lipid panel Discussed assessment and care plan with patient and patient at bedside. Both verbalized agreement and understanding of care plan. All questions were answered. Plan discussed with: Patient Code Visit Code Visit Total Time (mins): 45 Additional Comments Additional Comments Additional Comments Sitting in the chair comfortable. Nurse at bedside. Patient is seen evaluated and admitted by nurse practitioner this morning. Patient's chart is reviewed and discussed with the nurse practitioner overnight. I agree with the her evaluation, documentation, assessment and care plan as outlined. PATO SIMON Dec 03, 2024 01:26 IDA ZEPEDA MD Dec 03, 2024 22:00
[2024-12-03] MEDS: PANTOPRAZOLE 40 MG/10 ML VIAL INJ IV ONE (02:02)
[2024-12-03] MEDS: HYDROcodone-ACET 5/325MG TAB PO PRN (02:06)
[2024-12-03 03:00] VITALS: BP 135/76; PULSE 76; RESP 18; TEMP 98.2; O2SAT 97
--- NOTE | 2024-12-03 03:44 | DVH ---
EXAM: CT CERVICAL WITHOUT CONTRAST HISTORY: cervical pain COMPARISON: CT HEAD WITHOUT CONTRAST on DOS: 12/02/24 CTDIvol 19 mGy, DLP 538 mGy*cm. TECHNIQUE: Multiple axial CT images of the spine were obtained using bone algorithm. Axial and doe l reformatting was done. Bone and soft tissue windows were reviewed. FINDINGS: No evidence of vertebral fracture or compresison deformity. 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 Straightening of normal lordotic curvature. Mild multilevel degenerative listhesis. Moderate spondylo sis most pronounced at C5-C6. Normal alignment of the craniocervical junction with degenerative hupmhrey es present. Advanced odontogenic disease including bilateral mandibular periapical lucencies. No acute finding of the imaged intracranial contents, neck soft tissues, or upper chest. IMPRESSION: 1. No acute finding of the cervical spine. 2. Chronic and incidental findings above.
[2024-12-03] MEDS: SODIUM CHLORIDE 0.9% 1,000 ML IV SCH (04:28)
[2024-12-03 06:18] VITALS: BP 137/81; PULSE 73; RESP 18; TEMP 98.2; O2SAT 99
[2024-12-03 06:36] LABS: Triglycerides 71.0 mg/dL (< 150)
[2024-12-03 06:37] LABS: Magnesium 2.1 mg/dL (1.6-2.6)
[2024-12-03 06:38] LABS: Cholesterol 108.0 mg/dL (< 200)
[2024-12-03 07:02] LABS: HDL Cholesterol 67.0 mg/dL (40-59)
[2024-12-03 07:04] LABS: Lipase 70.0 U/L (12-53)
[2024-12-03] MEDS: PANTOPRAZOLE 40 MG/10 ML VIAL INJ IV SCH (09:45)
[2024-12-03 11:14] LABS: Urine Protein, UAD Negative (Negative)
[2024-12-03 11:24] LABS: Cannabinoid Screen, Urine Pos (NEGATIVE)
[2024-12-03 11:30] LABS: Amphetamine Screen, Urine Neg (NEGATIVE); Barbiturate Scree,Urine Neg (NEGATIVE); Benzodiazephine Screen, Urine Neg (NEGATIVE); Cocaine Screen, Urine Neg (NEGATIVE); Opiate Scree,Urine Pos (NEGATIVE); Phencyclidine Screen, Urine Neg (NEGATIVE)
[2024-12-03] MEDS: FOLIC ACID 1 MG, MAGNESIUM SULF SDV 50% 8 MEQ, MULTIPLE VITAMIN 10 ML, THIAMINE INJ 100... INJ SCH (12:43)
[2024-12-03 16:52] VITALS: BP 150/75; PULSE 74; TEMP 98; O2SAT 98
[2024-12-03 21:00] VITALS: BP 156/85; PULSE 78; RESP 19; TEMP 98.2; O2SAT 99
[2024-12-03] MEDS: ATORVASTATIN 20 MG TAB PO SCH (22:39)
[2024-12-04 01:00] VITALS: BP 140/90; PULSE 67; RESP 19; TEMP 98; O2SAT 97
[2024-12-04 05:00] VITALS: BP 155/87; PULSE 78; RESP 20; TEMP 98.2; O2SAT 97
[2024-12-04 07:30] VITALS: PULSE 83; RESP 16; O2SAT 100
[2024-12-04] MEDS: MULTIPLE VITAMIN TAB PO SCH (11:36)
[2024-12-04] MEDS: MAGNESIUM OXIDE 400 MG TAB PO SCH (11:36)
[2024-12-04] MEDS: FOLIC ACID 1 MG TAB PO SCH (11:37)
[2024-12-04] MEDS: THIAMINE HCL 100 MG TAB PO SCH (11:37)
--- NOTE | 2024-12-04 15:39 | DVHPN2 ---
Progress Note - Dictate Date Seen: Dec 04, 2024 Medical Necessity Reason Pt with a Central, PICC or Fol: No Subjective Clinically stable. Blood pressure is stable. Apparently had an episode of chest pain this morning. Currently pain-free. His troponin in the ly[place] zone at 75. vital signs Vital Sign Date Time Temp Pulse Resp B/P (MAP) Pulse Ox O2 Delivery O2 Flow Rate FiO2 12/04/24 07:30 83 16 100 Room Air* 0 21 12/04/24 05:00 98.2 155/87 (109) 98.2 Total Intake and Output 12/03/24 12/03/24 12/04/24 15:00 23:00 07:00 Intake Total 126.247 ml 240 ml Balance 126.247 ml 240 ml medications Current Medications Medications Dose Ordered Sig/Ernesto Route Start Time Stop Time Status Last Admin Dose Admin Nitroglycerin 0.4 mg Q5MINP PRN SL 12/03/24 00:30 Morphine Sulfate 2 mg Q30M PRN IV 12/03/24 00:30 Ondansetron HCl 4 mg Q6HPRN PRN IV 12/03/24 00:30 Aspirin 81 mg DAILY PO 12/03/24 10:00 12/04/24 11:37 81 MG Atorvastatin Calcium 40 mg HS PO 12/03/24 22:00 12/03/24 22:39 40 MG Acetaminophen 650 mg Q6HPRN PRN PO 12/03/24 00:30 Pantoprazole Sodium 40 mg DAILY IV 12/03/24 10:00 12/03/24 09:45 40 MG Acetaminophen/ Hydrocodone Bitart 1 tab Q6HPRN PRN PO 12/03/24 00:30 12/04/24 09:04 1 TAB Sodium Chloride 1,000 ml @ 100 mls/hr Q10H IV 12/03/24 02:30 12/03/24 22:30 100 MLS/HR Folic Acid 1 mg DAILY PO 12/04/24 10:00 12/04/24 11:37 1 MG Multivitamins 1 tab DAILY PO 12/04/24 10:00 12/04/24 11:36 1 TAB Magnesium Oxide 400 mg DAILY PO 12/04/24 10:00 12/04/24 11:36 400 MG Thiamine HCl 100 mg DAILY PO 12/04/24 10:00 12/04/24 11:37 100 MG objective Walking in the room. Alert awake oriented x3. HEENT neck supple no JVD. Heart regular rate and rhythm. Lungs fair air movement without rales wheezes. Abdomen soft nontender positive bowel sounds. Extremities no edema positive pulses laboratory and microbiology Laboratory Tests 12/02/24 20:11 Test 12/02/24 20:11 Range/Units Serum Glucose 104 74-106 mg/dL Assessment/Plan We will repeat serial cardiac enzymes. I will start him on Imdur and beta kavita. Cardiac consultation. 2D echocardiogram. Follow up EKG. Otherwise continue aspirin statin as he is on. Patient once again counseled regarding alcohol cessation. Continue rest of supportive care and treatment. Further clinical management per clinical course. Discussed with the nurse and patient at bedside regarding care plan. Problems(with codes): (1) Pre-syncope (2) Chest pain (3) Alcohol intoxication (4) Frequent falls Plan discussed with: Patient IDA ZEPEDA MD Dec 04, 2024 15:39
[2024-12-04] MEDS: ISOSORBIDE MONONITRATE ER 60 MG TAB PO ONE (16:42)
[2024-12-04] MEDS: METOPROLOL SUCCINATE XL 50 MG TAB PO ONE (16:42)
[2024-12-04] MEDS: ENOXAPARIN SOD 40 MG/0.4 ML SYRINGE SC ONE (16:42)
[2024-12-04 17:30] VITALS: BP 164/88; PULSE 74; RESP 18; TEMP 98.4; O2SAT 98
[2024-12-04 21:00] VITALS: BP 144/85; PULSE 72; RESP 19; TEMP 98.4; O2SAT 96
[2024-12-05] VITALS (8 sets, daily range): BP systolic 111–133; BP diastolic 73–78; PULSE 58–74; RESP 16–20; TEMP 97.7–99.1; O2SAT 96–99
[2024-12-05] MEDS: METOPROLOL SUCCINATE XL 50 MG TAB PO SCH (10:24)
--- NOTE | 2024-12-05 10:26 | DVHSR ---
APPROVED REPORT EXAM: Two-dimensional and M-mode echocardiogram with Doppler and color Doppler. Blood Pressure: 155/87 mmHg INDICATION Chest Pain RISK FACTORS Height: 5'9", Weight: 130 DIMENSIONS LVDd5.3 (3.8-5.7cm)LA (2D)3.8 (1.9-4.0cm)Aortic Root4.0 (2.0-3.7cm) LVDs3.7 (2.5-4.0cm)LA (MM) (1.9-4.0cm)Aortic Cusp Exc2.0 (1.5-2.0cm) EF (%) 57.0 (55-70%)Rt. Atrium3.8 (1.9-4.0cm)Asc. Aorta cm IVSd0.9 (0.7-1.1cm)RV (D) (1.8-2.4cm) PWd1.0 (0.7-1.1cm) Mitral Valve MitralMitral Stenosis E wave0.44m/sMV Mean GR.mmHg A wave0.78m/sMV Peak GR.mmHg E/A ratio0.62D MVAcm2 DECEL [id number] 1/2 Timems Aortic Valve Aortic ValveAortic Stenosis V10.82m/Jerry Mean GR.5mmHg V21.68m/Jerry Peak GR.11mmHg LVOT Diameter2.4 (1.8-2.4cm)Doppler AVA2.21cm2 Pulmonic Valve V20.79m/s Conclusion lvef 55% hypokinetic apex mild lvh trace mitral regurg
[2024-12-05] MEDS: ISOSORBIDE MONONITRATE ER 60 MG TAB PO SCH (10:27)
[2024-12-05] MEDS: ENOXAPARIN SOD 40 MG/0.4 ML SYRINGE SC SCH (10:28)
--- NOTE | 2024-12-05 18:32 | DVHPN2 ---
Progress Note - Dictate Date Seen: Dec 05, 2024 Medical Necessity Reason Pt with a Central, PICC or Fol: No Subjective Patient complaining of intermittent chest pain today. Troponin is slightly trended up. Patient is already on therapeutic dose of Lovenox for NSTEMI and cardiac medications. vital signs Vital Sign Date Time Temp Pulse Resp B/P (MAP) Pulse Ox O2 Delivery O2 Flow Rate FiO2 12/05/24 16:38 97.9 71 20 125/73 (90) 98 97.9 12/05/24 08:00 Room Air* 0 21 Total Intake and Output 12/04/24 12/04/24 12/05/24 15:00 23:00 07:00 Intake Total 0 ml 800 ml Balance 0 ml 800 ml medications Current Medications Medications Dose Ordered Sig/Ernesto Route Start Time Stop Time Status Last Admin Dose Admin Nitroglycerin 0.4 mg Q5MINP PRN SL 12/03/24 00:30 Morphine Sulfate 2 mg Q30M PRN IV 12/03/24 00:30 Ondansetron HCl 4 mg Q6HPRN PRN IV 12/03/24 00:30 Aspirin 81 mg DAILY PO 12/03/24 10:00 12/05/24 10:22 81 MG Atorvastatin Calcium 40 mg HS PO 12/03/24 22:00 12/04/24 21:58 40 MG Acetaminophen 650 mg Q6HPRN PRN PO 12/03/24 00:30 Folic Acid 1 mg DAILY PO 12/04/24 10:00 12/05/24 10:24 1 MG Multivitamins 1 tab DAILY PO 12/04/24 10:00 12/05/24 10:19 1 TAB Magnesium Oxide 400 mg DAILY PO 12/04/24 10:00 12/05/24 10:19 400 MG Thiamine HCl 100 mg DAILY PO 12/04/24 10:00 12/05/24 10:19 100 MG Isosorbide Mononitrate 30 mg DAILY PO 12/05/24 10:00 12/05/24 10:27 30 MG Metoprolol Succinate 25 mg DAILY PO 12/05/24 10:00 12/05/24 10:24 25 MG Enoxaparin Sodium 60 mg Q12HR SC 12/05/24 22:00 objective Alert awake oriented x3. HEENT neck supple no JVD. Heart regular rate and rhythm. Lungs fair air movement without rales wheezes. Abdomen soft nontender positive bowel sounds. Extremities no edema positive pulses laboratory and microbiology Laboratory Tests 12/02/24 20:11 Test 12/02/24 20:11 Range/Units Serum Glucose 104 74-106 mg/dL Assessment/Plan Slight up trend in cardiac enzymes. D-dimer is normal. Echocardiogram is done shows normal ejection fraction. Pending cardiac consultation. Meantime continue current anticoagulation aspirin statin and beta kavita as he is on. We will make him NPO after midnight in case should you require any invasive procedures. Otherwise continue morphine per pain and continue long-acting nitro as he is on. Further clinical management per clinical course. Discussed with the nurse and patient regarding care plan. Problems(with codes): (1) Angina pectoris (2) Chest pain (3) Alcohol intoxication Plan discussed with: Patient, Other IDA ZEPEDA MD Dec 05, 2024 18:32
[2024-12-05] MEDS: ENOXAPARIN SOD 100 MG/1 ML SYRINGE SC SCH (22:00)
[2024-12-05] MEDS: ACETAMINOPHEN 325 MG TAB PO PRN (23:21)
[2024-12-06] VITALS (13 sets, daily range): BP systolic 118–174; BP diastolic 73–93; PULSE 55–70; RESP 12–21; TEMP 97.8–98.9; O2SAT 94–99
[2024-12-06] MEDS: MORPHINE SULFATE INJ 2 MG/ml SYRG IV PRN (05:39)
[2024-12-06 08:05] LABS: Hematocrit 38.2 % (41.0-53.0); Hemoglobin 13.2 g/dL (13.5-17.5); Mean Corpuscular Hemoglobin 32.9 pg (28.0-32.0); Mean Corpuscular Volume 94.9 fL (80.0-100.0); Nucleated Red Blood Cells % 0.1 %
[2024-12-06 08:24] LABS: Albumin 4.4 g/dL (3.2-4.8); Alkaline Phosphatase 87 U/L (46-116); Anion Gap 8 (5-15); BUN/Creatinine Ratio 7.2 (10.0-20.0); Bilirubin, Total 0.7 mg/dL (0.2-1.0); Calcium 9.6 mg/dL (8.7-10.4); Carbon Dioxide 28 mmol/L (20-31); Chloride 101 mmol/L (98-107); Glucose 95 mg/dL (74-106); Sodium 137 mmol/L (136-145); Total Protein 6.4 g/dL (5.7-8.2)
[2024-12-06 08:27] LABS: Alanine Aminotransferase 67 U/L (7-40); Blood Urea Nitrogen 5 mg/dL (9-23); Potassium 3.4 mmol/L (3.5-5.1)
--- NOTE | 2024-12-06 09:13 | DVHINCON2 ---
DHARMESH BOWEN [facility], [place] 12/06/24 0913: Date Seen: Dec 06, 2024 Referring Physician MD Otto Reason for Consultation Chest pain History of Present Illness This is a 69-year-old man who presented to the emergency room via EMS with a chief complaint of a headache. The patient reports this past Friday he hit his head against a fci open garage door causing a fall injury with posterior head trauma. The patient is unsure if there was LOC but states he was on the floor for approximately 20 sec before standing up. Given a persistent DUARTE, decided to call 911 for further evaluation. It is important to note the patient admits drinking 32 oz beers x 2 on daily basis. During admission the patient also complained of left sided chest pain described as pressure like, non-radiating, non-provoked, rated as 8/10, intermittent, and with onset "for many years." He underwent a twelve-lead electrocardiogram revealing a sinus rhythm with an associated right bundle branch block and nonspecific inferior ST changes. Serial troponin levels peaked at 129 ng/L. Significant medical history includes hypertension, dyslipidemia, arthritis, periumbilical hernia, depression, and alcohol dependence. Past Medical History Past medical history reviewed. No other significant than mentioned above. Past Surgical History Past surgical history reviewed. No other significant than mentioned above. Family History: Alcoholism Family History Family history reviewed. Not significant for cardiovascular disease. Social History Admits to cannabinoid use. Admits to daily alcohol use, 32 oz beer x2 on daily basis. Denies any use of tobacco. Allergies: Coded Allergies: Lisinopril (Verified Allergy, Severe, 07/29/15) Home Meds Reported Medications Methocarbamol (Robaxin-750) 750 Mg Tab, 1 TAB PO TID, #90 TAB 12/22/13 Multiple Vitamin (Multi-Day Vitamins) Vitamins Tab, 1 TAB PO DAILY, #30 TAB 12/22/13 Furosemide (Furosemide) 40 Mg Tab, 1.5 TAB PO DAILY, #30 TAB 5 Refills 12/22/13 Potassium Chloride (Klor-Con M10) 10 Meq Tab, 20 MEQ PO BID, TAB 12/22/13 Tramadol Hcl (Tramadol Hcl) 50 Mg Tab, 50 MG PO BID, TAB 07/14/13 Gabapentin (Gabapentin) 300 Mg Cap, 300 MG PO QHSP PRN, CAP 07/14/13 Aspirin (Asa) 81 Mg Ch, 81 MG PO DAILY 07/14/13 Citalopram Hydrobromide (CeleXA TABLET) 20 Mg Tb, 40 MG PO DAILY 07/14/13 [Fish Oil] (Fish Oil) No Conflict Check, 1000 MG PO BID 01/25/13 Metoprolol Succinate (Toprol Xl) 50 Mg Tab, 50 MG PO BID 01/25/13 Famotidine (Famotidine) 20 Mg Tab, 40 MG PO DAILY 01/25/13 Home Meds Home medications reviewed. Current Medications Current Medications Medications (Trade) Dose Ordered Sig/Ernesto Route PRN Reason Start Time Stop Time Status Last Admin Enoxaparin Sodium (Lovenox) 40 mg DAILY SC 12/05/24 10:00 12/05/24 16:13 DC 12/05/24 10:28 Isosorbide Mononitrate (Imdur Er Tablet) 30 mg DAILY PO 12/05/24 10:00 12/05/24 10:27 Metoprolol Succinate (Toprol Xl) 25 mg DAILY PO 12/05/24 10:00 12/05/24 10:24 Enoxaparin Sodium (Lovenox) 60 mg Q12HR SC 12/05/24 22:00 Acetaminophen/ Hydrocodone Bitart ([place] 5/325MG Tab) 1 tab Q8HP PRN PO MODERATE PAIN (4-6 PAIN SCALE) 12/06/24 05:30 Review of Systems Constitutional: No symptom reported Ears, Nose, & Throat: No symptom reported Eyes: No symptom reported Neurological: Headache Pulmonary/Respiratory: No symptom reported Cardiovascular: Chest pain Gastrointestinal: No symptom reported Genitourinary: No symptom reported Musculoskeletal: No symptom reported Skin: No symptom reported Psychiatric: No symptom reported Endocrine: No symptom reported Hemotologic/Lymphatic: No symptom reported Vital Signs Vital Signs Date Time Temp Pulse Resp B/P (MAP) Pulse Ox O2 Delivery O2 Flow Rate FiO2 12/06/24 07:52 98.9 60 18 159/93 (115) 99 98.9 12/05/24 20:00 Room Air* 0 21 Physical Exam General Appearance: Cooperative. Well developed. Well nourished. In no acute distress Head Exam: Normal inspection Neck Exam: Normal inspection. Non-tender. Normal alignment Pulmonary/Respiratory: Chest non-tender. Clear bilateral breath sounds Cardiovascular/Chest: Regular rate and rhythm. S1, S2. NSR with RBBB and nonspecific ST changes to inferior leads. No murmurs. No JVD. Peripheral Pulses: 2+ Radial (R). 2+ Radial (L). 2+ Pedal (R). 2+ Pedal (L) Abdominal Exam: Normal bowel sounds. Soft. Nontender. No hepatospenomegaly. No masses Ankle Exam: Negative ankle edema Lower extremities: Negative lower extremity edema Neuro/Mental Status: A&O x4. Coherent Thoughts/Psych: Normal thought pattern. Appropriate mood and affect. Good judgement and insight Appearance: In no acute distress Skin Exam: Normal inspection. Normal color. Warm. Dry Labs/Diagnostic Data Labs Test 12/06/24 07:32 12/05/24 15:45 12/03/24 10:30 12/03/24 06:07 Range/Units White Blood Count 10.1 4.4-10.8 10^3/uL Red Blood Count 4.02 L 4.5-5.90 10^6/uL Hemoglobin 13.2 L 13.5-17.5 g/dL Hematocrit 38.2 L 41.0-53.0 % Mean Corpuscular Volume 94.9 80.0-100.0 fL Mean Corpuscular Hemoglobin 32.9 H 28.0-32.0 pg Mean Corpuscular Hemoglobin Concent 34.6 32.0-36.0 g/dL Red Cell Distribution Width 12.3 11.8-14.3 % Platelet Count 267 140-450 10^3/uL Mean Platelet Volume 6.3 L 6.9-10.8 fL Neutrophils (%) (Auto) 69.6 37.0-80.0 % Lymphocytes (%) (Auto) 17.3 10.0-50.0 % Monocytes (%) (Auto) 11.7 0.0-12.0 % Eosinophils (%) (Auto) 0.9 0.0-7.0 % Basophils (%) (Auto) 0.5 0.0-2.0 % Neutrophils # (Auto) 7.0 1.6-8.6 10 ^3/uL Lymphocytes # (Auto) 1.7 0.4-5.4 10 ^3/uL Monocytes # (Auto) 1.2 0-1.3 10 ^3/uL Eosinophils # (Auto) 0.1 0-0.8 10 ^3/uL Basophils # (Auto) 0.1 0-0.2 10 ^3/uL Nucleated Red Blood Cells 0.1 % Sodium Level 137 136-145 mmol/L Potassium Level 3.4 L 3.5-5.1 mmol/L Chloride Level 101 98-107 mmol/L Carbon Dioxide Level 28 20-31 mmol/L Anion Gap 8 5-15 Blood Urea Nitrogen 5 L 9-23 mg/dL Creatinine 0.69 L 0.700-1.30 mg/dL Glomerular Filtration Rate Calc 100 >90 mL/min BUN/Creatinine Ratio 7.2 L 10.0-20.0 Serum Glucose 95 74-106 mg/dL Calcium Level 9.6 8.7-10.4 mg/dL Total Bilirubin 0.7 0.2-1.0 mg/dL Aspartate Amino Transferase (AST) 73 H 13-40 U/L Alanine Aminotransferase (ALT) 67 H 7-40 U/L Alkaline Phosphatase 87 46-116 U/L Troponin I High Sensitivity 108 *H </=54 ng/L Total Protein 6.4 5.7-8.2 g/dL Albumin 4.4 3.2-4.8 g/dL D-Dimer, Quantitative 0.31 0.0-0.49 mg/L FEU Urine Color Yellow Yellow Urine Clarity Clear Clear Urine pH 5.5 5.0-9.0 Urine Specific [place] 1.013 1.001-1.035 Urine Protein Negative Negative Urine Ketones 1+ H Negative Urine Blood Trace H Negative /uL Urine Nitrite Negative Negative Urine Bilirubin Negative Negative Urine Urobilinogen Normal Negative mg/dL Urine Leukocyte Esterase Negative Negative /uL Urine RBC 1 0 - 3 /hpf Urine Microscopic WBC 2 0-3 /HPF Urine Squamous Epithelial Cells Few <5 /hpf Urine Bacteria None seen None Seen /hpf Urine Mucus Few None Seen Urine Glucose Normal Normal mg/dL Urine Opiates Screen Pos NEGATIVE Urine Fentanyl Screen Neg NEGATIVE Urine Barbiturates Screen Neg NEGATIVE Urine Phencyclidine Screen Neg NEGATIVE Urine Amphetamines Screen Neg NEGATIVE Urine Benzodiazepines Screen Neg NEGATIVE Urine Cocaine Screen Neg NEGATIVE Urine Cannabinoids Screen Pos NEGATIVE Magnesium Level 2.1 1.6-2.6 mg/dL Triglycerides Level 71 < 150 mg/dL Cholesterol Level 108 < 200 mg/dL LDL Cholesterol 28 < 100 mg/dL HDL Cholesterol 67 H 40-59 mg/dL Lipase 70 H 12-53 U/L Test 12/02/24 20:11 Range/Units Ammonia 24 11-32 umol/L B-Type Natriuretic Peptide 45.87 0-100 pg/mL Plasma/Serum Blood Alcohol 275.5 H <10 mg/dL Assessment Chest pain rule out coronary artery disease Hypertension Dyslipidemia Hypokalemia Alcohol dependence with acute intoxication Plan/Recommendation (Dr. Jacob) In the setting of a borderline abnormal 12-lead electrocardiogram, hypokinetic apex on transthoracic echocardiogram, active chest pain, and risk factors, the patient has been scheduled for a left cardiac catheterization and coronary angiogram at first available. All risks and benefits of the procedure were discussed with the patient who agrees to proceed with intervention. All questions answered. In the meantime, continue single-antiplatelet therapy and lipid lowering agent. Replenish electrolytes as necessary. Transthoracic echocardiogram revealed a LVEF of 55% with hypokinetic apex and mild LVH. Further orders per clinical course. Thank you for allowing us to participate in this patient's care. Please call if you have any questions or concerns. This medical document was created using an electronic medical record system with voice recognition software and computerized dictation system. Although this document has been carefully reviewed, there might still be some phonetic and typographical errors. Occasional wrong-word or ``sound-alike substitutions may have occurred due to the inherent limitations of voice recognition software. These areas are purely typographical due to imperfections of the software programs and do not reflect any compromise in the patient's medical care. Please read the chart carefully and recognize, using context, where these substitutions have occurred. Plan discussed with: Patient, Other NYHA Physical activity limitations: NA Date of Service: Dec 06, 2024 Billing Provider: DHARMESH BOWEN LAND ACQUISITION MANAGER Cardiology Common Codes: [id number] INP/OBS CARE (High) NIRAV JACOB MD 12/06/24 1835: Family History: Alcoholism Allergies: Coded Allergies: Lisinopril (Verified Allergy, Severe, 07/29/15) Home Meds Reported Medications Methocarbamol (Robaxin-750) 750 Mg Tab, 1 TAB PO TID, #90 TAB 12/22/13 Multiple Vitamin (Multi-Day Vitamins) Vitamins Tab, 1 TAB PO DAILY, #30 TAB 12/22/13 Furosemide (Furosemide) 40 Mg Tab, 1.5 TAB PO DAILY, #30 TAB 5 Refills 12/22/13 Potassium Chloride (Klor-Con M10) 10 Meq Tab, 20 MEQ PO BID, TAB 12/22/13 Tramadol Hcl (Tramadol Hcl) 50 Mg Tab, 50 MG PO BID, TAB 07/14/13 Gabapentin (Gabapentin) 300 Mg Cap, 300 MG PO QHSP PRN, CAP 07/14/13 Aspirin (Asa) 81 Mg Ch, 81 MG PO DAILY 07/14/13 Citalopram Hydrobromide (CeleXA TABLET) 20 Mg Tb, 40 MG PO DAILY 07/14/13 [Fish Oil] (Fish Oil) No Conflict Check, 1000 MG PO BID 01/25/13 Metoprolol Succinate (Toprol Xl) 50 Mg Tab, 50 MG PO BID 01/25/13 Famotidine (Famotidine) 20 Mg Tab, 40 MG PO DAILY 01/25/13 Plan/Recommendation agree with PLASTIC TOP ASSEMBLER assessment and plan [facility] today Plan discussed with: Patient DHARMESH BOWEN ROZINA Dec 06, 2024 09:13 NIRAV JACOB MD Dec 06, 2024 18:35
[2024-12-06] MEDS: POTASSIUM CHL 20 Meq TABLET PO ONE (09:15)
[2024-12-06 10:23] LABS: INR 1.02 (0.9-1.15); Partial Thromboplastin Time 30.8 SEC (24.5-34.5); Prothrombin Time 10.8 sec (9.3-11.8)
--- NOTE | 2024-12-06 11:27 | ECG ---
[facility] Test Date: 2024-12-06 Test Time: 05:25:10 Pat Name: MONIKA MAX Department: Respiratoy Room: 0223T A Gender: M Agent Based Modeler: JACKELIN : [id number] Requested By: IDA ZEPEDA Order Number: [id number] Reading MD: Mayito Guerrero Measurements Intervals [place] Rate: 54 P: 33 [place]: 180 QRS: -63 QRSD: 173 T: -27 QT: 461 QTc: 437 Interpretive Statements Sinus rhythm RBBB and LAFB Left ventricular hypertrophy Electronically Signed On 12-06-2024 18:47:24 PDT by Mayito Guerrero Please click the below link to view image of tracing.
[2024-12-06] MEDS: IODIXANOL 320MG/ML 100ML BTL IV ONE (12:30)
[2024-12-06] MEDS: fentaNYL CITRATE 100 MCG/2 ML VL ONE (12:38)
[2024-12-06] MEDS: MIDAZOLAM HCL 2MG/2ML 2ml VIAL (1mg/ml) ONE (12:38)
[2024-12-06] MEDS: LIDOCAINE 2%HCL (LOCAL ANESTH.) INJ 20ML MDV ONE (12:38)
[2024-12-06] MEDS: HEPARIN SODIUM (PORCINE) 5000 UNITS/ML 1ML VIAL ONE (12:38)
[2024-12-06] MEDS: VERAPAMIL 2.5MG/ML INJ 2ML VIAL IV ONE (12:38)
--- NOTE | 2024-12-06 13:06 | DVHOP2 ---
Operative Report Operative Report CARDIAC PLUMBER AND TINNER PROCEDURE REPORT [place], [place] Date of Service: 12/06/24 Timber Sizer Operator: Nirav Jacob MD PROCEDURES PERFORMED: Coronary angiogram, left heart catheterization, conscious sedation administration and supervision, less than 15 minutes; fluoroscopy use and interpretation. PREOPERATIVE DIAGNOSES: nstemi POSTOP DIAGNOSIS: diastolic HF DESCRIPTION OF PROCEDURE: The patient or appropriate family signed informed consent understanding the risks, benefits and alternatives of the procedure, they wished to proceed. The patient was brought to the cardiac quality control lab technician in n.p.o. state. The patient was prepped in a sterile fashion. Sedation was used per cardiac cath protocol. I administered 2 mL of 2% lidocaine to the right wrist. With an antegrade front wall puncture. I cannulated the right radial artery and placed a 6-[place] Glidesheath slender. Next, an intra-arterial spasmolytic was administered. Next, a - 5[place] catheter and and were used for coronary angiogram and LVEDP measurement and pressure pullback. At the completion of procedure, all guides and wires were removed, and there were no immediate complications. FINDINGS: RCA: Moderate vessel off the right sinus of Valsalva, there is no severe flow limiting stenosis. non dominant vessel LEFT MAIN: large size left main, it bifurcates into LAD and circumflex. no stenosis. CIRCUMFLEX: Moderate to large caliber vessel coming off the left main with no flow limiting stenosis. sluggish flow suggestive of microvascular disease. dominant vessel LAD: LAD is a moderate caliber vessel coming of the left main. sluggish flow suggestive of microvascular disease. no severe stenosis LVEDP of 10 mmhg CONCLUSIONS: 1. no severe cad noted 2. sluggish flow suggestive of microvascular disease 3. conduction disease on ecg PLAN: Aggressive risk factor modification and medical management for the patient. NIRAV JACOB MD Dec 06, 2024 13:06
--- NOTE | 2024-12-06 13:07 | DVHPN2 ---
Progress Note Date Seen: Dec 06, 2024 Medical Necessity Reason Pt with a Central, PICC or Fol: No Subjective Patient reports: Feels better Objective vital signs Vital Sign Date Time Temp Pulse Resp B/P (MAP) Pulse Ox O2 Delivery O2 Flow Rate FiO2 12/06/24 09:56 70 174/92 12/06/24 07:52 98.9 18 99 98.9 12/05/24 20:00 Room Air* 0 21 Total Intake and Output 12/05/24 12/05/24 12/06/24 15:00 23:00 07:00 Intake Total 1000 ml 1280 ml 0 ml Balance 1000 ml 1280 ml 0 ml medications Current Medications Medications Dose Ordered Sig/Ernesto Route Start Time Stop Time Status Last Admin Dose Admin Nitroglycerin 0.4 mg Q5MINP PRN SL 12/03/24 00:30 Morphine Sulfate 2 mg Q30M PRN IV 12/03/24 00:30 12/06/24 05:39 2 MG Ondansetron HCl 4 mg Q6HPRN PRN IV 12/03/24 00:30 Aspirin 81 mg DAILY PO 12/03/24 10:00 12/06/24 09:46 81 MG Atorvastatin Calcium 40 mg HS PO 12/03/24 22:00 12/05/24 22:58 40 MG Acetaminophen 650 mg Q6HPRN PRN PO 12/03/24 00:30 12/05/24 23:21 650 MG Folic Acid 1 mg DAILY PO 12/04/24 10:00 12/06/24 09:46 1 MG Multivitamins 1 tab DAILY PO 12/04/24 10:00 12/06/24 09:46 1 TAB Magnesium Oxide 400 mg DAILY PO 12/04/24 10:00 12/06/24 09:46 400 MG Thiamine HCl 100 mg DAILY PO 12/04/24 10:00 12/06/24 09:46 100 MG Isosorbide Mononitrate 30 mg DAILY PO 12/05/24 10:00 12/06/24 09:51 30 MG Metoprolol Succinate 25 mg DAILY PO 12/05/24 10:00 12/06/24 09:56 25 MG Acetaminophen/ Hydrocodone Bitart 1 tab Q8HP PRN PO 12/06/24 05:30 Examination: GENERAL:Abnormal, HEENT:Abnormal, LUNGS:Abnormal, CVS:Abnormal, ABDOMEN:Abnormal laboratory and microbiology Laboratory Tests 12/06/24 07:32 Test 12/06/24 07:32 Range/Units Serum Glucose 95 74-106 mg/dL Problem List/Assessment/Plan Problem List/Assessment/Plan Chest pain rule out coronary artery disease Hypertension Dyslipidemia Hypokalemia Alcohol dependence with acute intoxication [facility] no severe cad conduction disease on ecg outpt fu Plan discussed with: Patient Date of Service: Dec 06, 2024 Billing Provider: NIRAV JACOB MD Common Visit Codes: NOT BILLABLE NIRAV JACOB MD Dec 06, 2024 13:07
--- NOTE | 2024-12-06 16:01 | DVHDS2 ---
Discharge Summary Date of Admission Dec 03, 2024 at 00:28 Date of Discharge: Dec 06, 2024 Labs/Diagnostic Data: Laboratory Results Test 12/06/24 07:32 12/05/24 15:45 12/03/24 10:30 12/03/24 06:07 White Blood Count 10.1 10^3/uL (4.4-10.8) Red Blood Count 4.02 10^6/uL (4.5-5.90) Hemoglobin 13.2 g/dL (13.5-17.5) Hematocrit 38.2 % (41.0-53.0) Mean Corpuscular Volume 94.9 fL (80.0-100.0) Mean Corpuscular Hemoglobin 32.9 pg (28.0-32.0) Mean Corpuscular Hemoglobin Concent 34.6 g/dL (32.0-36.0) Red Cell Distribution Width 12.3 % (11.8-14.3) Platelet Count 267 10^3/uL (140-450) Mean Platelet Volume 6.3 fL (6.9-10.8) Neutrophils (%) (Auto) 69.6 % (37.0-80.0) Lymphocytes (%) (Auto) 17.3 % (10.0-50.0) Monocytes (%) (Auto) 11.7 % (0.0-12.0) Eosinophils (%) (Auto) 0.9 % (0.0-7.0) Basophils (%) (Auto) 0.5 % (0.0-2.0) Neutrophils # (Auto) 7.0 10 ^3/uL (1.6-8.6) Lymphocytes # (Auto) 1.7 10 ^3/uL (0.4-5.4) Monocytes # (Auto) 1.2 10 ^3/uL (0-1.3) Eosinophils # (Auto) 0.1 10 ^3/uL (0-0.8) Basophils # (Auto) 0.1 10 ^3/uL (0-0.2) Nucleated Red Blood Cells 0.1 % Prothrombin Time 10.8 sec (9.3-11.8) Prothrombin Time INR 1.02 (0.9-1.15) Activated Partial Thromboplast Time 30.8 SEC (24.5-34.5) Sodium Level 137 mmol/L (136-145) Potassium Level 3.4 mmol/L (3.5-5.1) Chloride Level 101 mmol/L (98-107) Carbon Dioxide Level 28 mmol/L (20-31) Anion Gap 8 (5-15) Blood Urea Nitrogen 5 mg/dL (9-23) Creatinine 0.69 mg/dL (0.700-1.30) Glomerular Filtration Rate Calc 100 mL/min (>90) BUN/Creatinine Ratio 7.2 (10.0-20.0) Serum Glucose 95 mg/dL (74-106) Hemoglobin A1c 4.6 % A1C (<5.7) Calcium Level 9.6 mg/dL (8.7-10.4) Total Bilirubin 0.7 mg/dL (0.2-1.0) Aspartate Amino Transferase (AST) 73 U/L (13-40) Alanine Aminotransferase (ALT) 67 U/L (7-40) Alkaline Phosphatase 87 U/L (46-116) Troponin I High Sensitivity 108 ng/L (</=54) Total Protein 6.4 g/dL (5.7-8.2) Albumin 4.4 g/dL (3.2-4.8) Thyroid Stimulating Hormone (TSH) 0.86 uIU/mL (0.55-4.78) D-Dimer, Quantitative 0.31 mg/L FEU (0.0-0.49) Urine Color Yellow (Yellow) Urine Clarity Clear (Clear) Urine pH 5.5 (5.0-9.0) Urine Specific [place] 1.013 (1.001-1.035) Urine Protein Negative (Negative) Urine Ketones 1+ (Negative) Urine Blood Trace /uL (Negative) Urine Nitrite Negative (Negative) Urine Bilirubin Negative (Negative) Urine Urobilinogen Normal mg/dL (Negative) Urine Leukocyte Esterase Negative /uL (Negative) Urine RBC 1 /hpf (0 - 3) Urine Microscopic WBC 2 /HPF (0-3) Urine Squamous Epithelial Cells Few /hpf (<5) Urine Bacteria None seen /hpf (None Seen) Urine Mucus Few (None Seen) Urine Glucose Normal mg/dL (Normal) Urine Opiates Screen Pos (NEGATIVE) Urine Fentanyl Screen Neg (NEGATIVE) Urine Barbiturates Screen Neg (NEGATIVE) Urine Phencyclidine Screen Neg (NEGATIVE) Urine Amphetamines Screen Neg (NEGATIVE) Urine Benzodiazepines Screen Neg (NEGATIVE) Urine Cocaine Screen Neg (NEGATIVE) Urine Cannabinoids Screen Pos (NEGATIVE) Magnesium Level 2.1 mg/dL (1.6-2.6) Triglycerides Level 71 mg/dL (< 150) Cholesterol Level 108 mg/dL (< 200) LDL Cholesterol 28 mg/dL (< 100) HDL Cholesterol 67 mg/dL (40-59) Lipase 70 U/L (12-53) Test 12/02/24 20:11 Ammonia 24 umol/L (11-32) B-Type Natriuretic Peptide 45.87 pg/mL (0-100) Plasma/Serum Blood Alcohol 275.5 mg/dL (<10) Other Laboratory Tests 12/06/24 07:32 Brief Hx & Hospital Course: Mr. Blair Harper is a 69 yo male with known history of arthritis, depression, Hypertension, [place], Alcohol dependance who presents with a chief complaint of frequent falls x3 days, with an occipital headache, neck pain post fall x 3 days ago when patient states "i hit the back of my head". Patient reports he was referred to a cardiologists by his PCP for a cardiac workup. Patient reports on and off left sided chest pain radiating to his left arm. Patient denies, nausea, vomiting, dizziness, blurry vision, dyspnea, fevers, chills, tremors, SI. Patient admitted for further evaluation and treatment. He is admitted and underwent counseled and educated regarding his alcohol misuse disorder. Advised to seek help with the AA meetings and rehab programs. While in the hospital patient complained of chest pain with elevated troponins therefore evaluated by sales officer underwent coronary angiogram. Recommended medical treatment. Otherwise patient is clinically stable. Therefore it is felt he could be safely discharged home. I have advised him to continue the medications as he is prescribed and have a close follow up with the PCP as mentioned. Patient verbalized understanding of his hospital diagnosis, treatment he received, discharge medications, discharge instructions and agree with the follow up plan of care as outlined. Consults/Reason for consult Problem List/Assessment/Plan Chest pain rule out coronary artery disease Hypertension Dyslipidemia Hypokalemia Alcohol dependence with acute intoxication [facility] no severe cad conduction disease on ecg outpt fu Plan discussed with: Patient Date of Service: Dec 06, 2024 Billing Provider: NIRAV JACOB MD Common Visit Codes: NOT BILLABLE NIRAV JACOB MD Dec 06, 2024 13:07 Operations or Procedures Operative Report Operative Report CARDIAC SLITTER OPERATOR PROCEDURE REPORT [place], [place] Date of Service: 12/06/24 Mis Specialist: Nirav Jacob MD PROCEDURES PERFORMED: Coronary angiogram, left heart catheterization, conscious sedation administration and supervision, less than 15 minutes; fluoroscopy use and interpretation. PREOPERATIVE DIAGNOSES: nstemi POSTOP DIAGNOSIS: diastolic HF DESCRIPTION OF PROCEDURE: The patient or appropriate family signed informed consent understanding the risks, benefits and alternatives of the procedure, they wished to proceed. The patient was brought to the cardiac label cutter in [place] state. The patient was prepped in a sterile fashion. Sedation was used per cardiac cath protocol. I administered 2 mL of 2% lidocaine to the right wrist. With an antegrade front wall puncture. I cannulated the right radial artery and placed a 6-[place]ath slender. Next, an intra-arterial spasmolytic was administered. Next, a - 5French [place] catheter and and were used for coronary angiogram and LVEDP measurement and pressure pullback. At the completion of procedure, all guides and wires were removed, and there were no immediate complications. FINDINGS: RCA: Moderate vessel off the right sinus of Valsalva, there is no severe flow limiting stenosis. non dominant vessel LEFT MAIN: large size left main, it bifurcates into LAD and circumflex. no stenosis. CIRCUMFLEX: Moderate to large caliber vessel coming off the left main with no flow limiting stenosis. sluggish flow suggestive of microvascular disease. dominant vessel LAD: LAD is a moderate caliber vessel coming of the left main. sluggish flow suggestive of microvascular disease. no severe stenosis LVEDP of 10 mmhg CONCLUSIONS: 1. no severe cad noted 2. sluggish flow suggestive of microvascular disease 3. conduction disease on ecg PLAN: Aggressive risk factor modification and medical management for the patient. NIRAV JACOB MD Dec 06, 2024 13:06 Condition at Discharge: Stable Final Diagnosis/Problems List fall possibly secondary to alcohol intoxication, alcohol use disorder, angina pectoris status post normal coronary angiogram Discharge Disposition: Home Discharge Instruct/Medications Diet: Consistent carbohydrate, Cardiac 2g Na,low cholest Activity: No Restrictions, As Tolerated Follow Up/Referral: Primary care physician next week for help with the alcohol use disorder and heart doctor after two weeks follow up for any chest pain Medications: Medications as you were taking at home Scheduled Aspirin (Asa), 81 MG PO DAILY, (Reported) Citalopram Hydrobromide (CeleXA TABLET), 40 MG PO DAILY, (Reported) Famotidine (Famotidine), 40 MG PO DAILY, (Reported) Furosemide (Furosemide), 1.5 TAB PO DAILY, (Reported) Methocarbamol (Robaxin-750), 1 TAB PO TID, (Reported) Metoprolol Succinate (Toprol Xl), 50 MG PO BID, (Reported) Multiple Vitamin (Multi-Day Vitamins), 1 TAB PO DAILY, (Reported) Potassium Chloride (Klor-Con M10), 20 MEQ PO BID, (Reported) Tramadol Hcl (Tramadol Hcl), 50 MG PO BID, (Reported) [Fish Oil], 1,000 MG PO BID, (Reported) Scheduled PRN Gabapentin (Gabapentin), 300 MG PO QHSP PRN, (Reported) Discharge Statement: "Patient was advised to return to the ER or call 911 if any headaches, dizziness, shortness of breath, chest pain, abdominal pain, bleeding, fevers, or worsening of medical condition. Patient was counseled about treatment plan, medications, possible side effects, patientverbalized understanding. All questions were answered to the best of my ability. This discharge took greater then 30 minutes in planning, reviewing documentation, counseling the patient, and discussing with other team members." ASSESSMENT ASSESSMENT Assessment fall possibly secondary to alcohol intoxication, alcohol use disorder, angina pectoris status post normal coronary angiogram IDA ZEPEDA MD Dec 06, 2024 16:01
[2024-12-06] MEDS: HYDROcodone-ACET 5/325MG TAB PO PRN (17:06)
== END 2024-12-06 20:23 | disposition home or self-care (01) | DRG 282 ==
LOC: ER 19:31 → EDBD 19:31 → OVERFLOW 12-03 00:28 → TELE-CENTR 12-04 15:26
PROVIDERS: ADMIT Hospitalist; ATTEND Hospitalist
PROC: 4A023N7 Measurement of Cardiac Sampling and Pressure, Left Heart, Percutaneous Approach (ICD-10-PCS; principal; 2024-12-06)
PROC: B211YZZ Fluoroscopy of Multiple Coronary Arteries using Other Contrast (ICD-10-PCS; 2024-12-06)
DX: I25.110 Atherosclerotic heart disease of native coronary artery with unstable angina pectoris (principal); I21.A1 Myocardial infarction type 2; F10.229 Alcohol dependence with intoxication, unspecified; R29.6 Repeated falls; F32.A Depression, unspecified; K42.9 Umbilical hernia without obstruction or gangrene; E11.9 Type 2 diabetes mellitus without complications; E78.5 Hyperlipidemia, unspecified; E87.6 Hypokalemia; Y90.9 Presence of alcohol in blood, level not specified; I11.0 Hypertensive heart disease with heart failure; Z79.82 Long term (current) use of aspirin; Z79.899 Other long term (current) drug therapy; Z88.8 Allergy status to other drugs, medicaments and biological substances
CPT/HCPCS: 36415; 70450; 71045; 72125; 74176; 80053; 80061; 80307; 80320; 81001; 82140; 83036; 83690; 83735; 83880; 84443; 84484; 85025; 85379; 85610; 85730; 93005; 93306; 93452; 96361; 96374; 97110; 97163; 99152; G0378; J2250; J2470; Q9967